=== PATIENT | female | born 1985 | race Asian ===

== ENCOUNTER 2022-01-25 07:54 | Outpatient (CLI) | payer OTHER | END 2022-01-25 07:55 | disposition home or self-care (01) | LOC: CSHMAMMO 07:54 | PROVIDERS: ATTEND Family Medicine | DX: N63.11 Unspecified lump in the right breast, upper outer quadrant (principal); N60.01 Solitary cyst of right breast; Z98.82 Breast implant status | CPT/HCPCS: 77066; G0279 ==